=== PATIENT | female | born 1985 | race African-American/Black ===

== ENCOUNTER 2017-01-03 21:41 | Emergency (ER) | payer OTHER ==
[2017-01-03 22:00] VITALS: TEMP 98.3; BMI 33.2
--- NOTE | 2017-01-03 23:51 | PDOC ---
History of Present Illness - General History Source: Patient Exam Limitations: No Limitations - History of Present Illness Initial Comments: 01/04/17 00:06 The patient is a 31 year old female, with no significant past medical history who presents to the emergency department with lower abdominal pain since this morning. Patient reports the pain initially began as pressure like sensation upon urination. Patient also reported associated nausea, diarrhea and urinary retention. Patient states this morning, the pain still persists however is localized to the entire lower abdomen. Note, patient is also late for menstrual cycle. She denies chest pain, headache or dizziness. She denies fever, chills, vomit, diarrhea or constipation. She denies dysuria, frequency, urgency or hematuria. Patient denies sick contacts or recent travel. Allergies: amoxicillin, penicillins Past surgical history: Cholecystectomy Social history: Current everyday smoker <Chelsi Kemp - Last Filed: 01/04/17 00:06> - General History Source: Patient <AramMason devi - Last Filed: 01/04/17 01:23> - General Chief Complaint: Pain Stated Complaint: PAIN Time Seen by Provider: 01/03/17 23:45 Past History <Chelsi Kemp - Last Filed: 01/04/17 00:06> - Past Medical History Other medical history: Pt denies - Surgical History Cholecystectomy: Yes - Immunization History Immunization Up to Date: Yes - Suicide/Smoking/Psychosocial Hx Smoking Status: No Smoking History: Current every day smoker Have you smoked in the past 12 months: Yes Number of Cigarettes Smoked Daily: 10 Information on smoking cessation initiated: No 'Breaking Loose' booklet given: 05/31/14 Hx Alcohol Use: No Drug/Substance Use Hx: No Substance Use Type: None Hx Substance Use Treatment: No <Mason Linares - Last Filed: 01/04/17 01:23> - Past Medical History Allergies/Adverse Reactions: Allergies Allergy/AdvReac Type Severity Reaction Status Date / Time amoxicillin Allergy Intermediate Rash Verified 01/03/17 21:51 Penicillins Allergy Verified 01/03/17 21:51 Home Medications: Ambulatory Orders Medroxyprogesterone Acet [Depo-Provera] 150 mg IM ASDIR 10/03/14 Ibuprofen 800 mg PO TID #30 tablet 01/04/17 Levofloxacin [Levaquin -] 500 mg PO DAILY #4 tablet 01/04/17 Phenazopyridine HCl [Pyridium] 100 mg PO TID #6 tablet 01/04/17 Review of Systems - Review of Systems Able to Perform ROS?: Yes Comments:: 01/04/17 00:07 CONSTITUTIONAL: Absent: fever, chills, diaphoresis, generalized weakness, malaise, loss of appetite HEENT: Absent: rhinorrhea, nasal congestion, throat pain, throat swelling, difficulty swallowing, mouth swelling, ear pain, eye pain, visual Changes CARDIOVASCULAR: Absent: chest pain, syncope, palpitations, irregular heart rate, lightheadedness , peripheral edema RESPIRATORY: Absent: cough, shortness of breath, dyspnea with exertion, orthopnea, wheezing, stridor, hemoptysis GASTROINTESTINAL: +abdominal pain. +nausea. Absent: abdominal distension, vomiting, diarrhea, constipation, melena, hematochezia GENITOURINARY: Absent: dysuria, frequency, urgency, hesitancy, hematuria, flank pain, genital pain MUSCULOSKELETAL: Absent: myalgia, arthralgia, joint swelling SKIN: Absent: rash, itching, pallor HEMATOLOGIC/IMMUNOLOGIC: Absent: easy bleeding, easy bruising, lymphadenopathy, frequent infections ENDOCRINE: Absent: unexplained weight gain, unexplained weight loss, heat intolerance, cold intolerance NEUROLOGIC: Absent: headache, focal weakness or paresthesias, dizziness, unsteady gait, seizure, mental status changes, bladder or bowel incontinence PSYCHIATRIC: Absent: anxiety, depression, suicidal or homicidal ideation, hallucinations. <Chelsi Kemp - Last Filed: 01/04/17 00:06> *Physical Exam - Vital Signs Last Vital Signs Temp Pulse Resp BP Pulse Ox 98.3 F 95 H 20 152/74 99 01/03/17 21:51 01/03/17 21:51 01/03/17 21:51 01/03/17 21:51 01/03/17 21:51 - Physical Exam Comments: 01/04/17 00:07 GENERAL: Well developed, well nourished. Awake and alert. In no acute distress. HEENT: Normocephalic, atraumatic. PERRLA, EOMI. No conjunctival pallor. Sclerae are non -icteric. Moist mucous membranes. Oropharynx is clear. NECK: Supple. Full ROM. No JVD. Carotid pulses 2+ and symmetric, without bruits. No thyromegaly. No lymphadenopathy. CARDIOVASCULAR: Regular rate and rhythm. No murmurs, rubs, or gallops. Distal pulses are 2+ and symmetric. PULMONARY: No evidence of respiratory distress. Lungs clear to auscultation bilaterally. No wheezing, rales or rhonchi. ABDOMINAL: +diffuse abdominal tenderness. Soft. Non-tender. Non-distended. No rebound or guarding. No organomegaly. Normoactive bowel sounds. MUSCULOSKELETAL Normal range of motion at all joints. No bony deformities or tenderness. No CVA tenderness. EXTREMITIES: No cyanosis. No clubbing. No edema. No calf tenderness. SKIN: Warm and dry. Normal capillary refill. No rashes. No jaundice. NEUROLOGICAL: Alert, awake, appropriate. Cranial nerves 2-12 intact. No deficits to light touch and temperature in face, upper extremities and lower extremities. No motor deficits in the in face, upper extremities and lower extremities. Normoreflexic in the upper and lower extremities. Normal speech. Toes are downgoing bilaterally. Gait is normal without ataxia. PSYCHIATRIC: Cooperative. Good eye contact. Appropriate mood and affect. <Chelsi Kemp - Last Filed: 01/04/17 00:06> - Vital Signs Last Vital Signs Temp Pulse Resp BP Pulse Ox 98.3 F 95 H 20 152/74 99 01/03/17 21:51 01/03/17 21:51 01/03/17 21:51 01/03/17 21:51 01/03/17 21:51 <Mason Linares - Last Filed: 01/04/17 01:23> ED Treatment Course - LABORATORY CBC & Chemistry Diagram: 01/04/17 00:05 01/04/17 00:05 <Mason Linares - Last Filed: 01/04/17 01:23> Medical Decision Making - Medical Decision Making 01/04/17 01:23 Dr. Linares: The scribe's documentation has been prepared under my direction and personally reviewed by me in its entirery. I confirm that the note above accurately reflects all work, treatment, procedures, and medical decision making performed by me. <Mason Linares - Last Filed: 01/04/17 01:23> *DC/Admit/Observation/Transfer - Attestations Scribe Attestion: 01/04/17 00:07 Documentation prepared by Chelsi Kemp, acting as medical director of hospice for Mason Linares DO <Chelsi Kemp - Last Filed: 01/04/17 00:06> - Discharge Dispostion Admit: No <Mason Linares - Last Filed: 01/04/17 01:23> Diagnosis at time of Disposition: UTI (urinary tract infection) Qualifiers: Urinary tract infection type: site unspecified Hematuria presence: without hematuria Qualified Code(s): N39.0 - Urinary tract infection, site not specified ; N39.0 - Urinary tract infection, site not specified - Discharge Dispostion Disposition: HOME Condition at time of disposition: Stable - Patient Instructions Printed Discharge Instructions: DI for Urinary Tract Infection (UTI)
[2017-01-03] MEDS ORDERED: SODIUM CHLORIDE 1,000 ML IV STA (23:52)
[2017-01-04 00:23] LABS: BASOPHIL 0.6 % (0-2.0); EOSINOPHIL 0.4 % (0-4.5); MCH 28.5 pg (25.7-33.7); MEAN CELL VOLUME 86.4 fl (80-96); MEAN PLT VOLUME 9.6 fl (7.5-11.1); NEUTROPHILS 70.9 % (42.8-82.8); PLATELET COUNT 227 K/MM3 (134-434); WHITE BLOOD COUNT 16.8 K/mm3 (4.0-10.0)
[2017-01-04 00:49] LABS: ALBUMIN 3.8 g/dl (3.4-5.0); ALK PHOS 68 U/L (45-117); ANION GAP 9 (8-16); BILIRUBIN,TOTAL 0.4 mg/dL (0.2-1.0); CALCIUM 8.6 mg/dL (8.5-10.1); CO2 27 mmol/L (21-32); GLUCOSE,RANDOM 88 mg/dL (74-106); MAGNESIUM 2.2 mg/dL (1.8-2.4); SGOT/AST 14 U/L (15-37); SGPT/ALT 30 U/L (12-78); TOT PROT 7.6 g/dl (6.4-8.2)
[2017-01-04 00:57] LABS: URINE APPEARANCE SLCLOUDY; URINE BILIRUBIN NEGATIVE (NEGATIVE); URINE BLOOD 3+ (NEGATIVE); URINE COLOR STRAW; URINE GLUCOSE (UA) NEGATIVE (NEGATIVE); URINE KETONE NEGATIVE (NEGATIVE); URINE NITRITE NEGATIVE (NEGATIVE); URINE PROTEIN NEGATIVE (NEGATIVE); URINE UROBILINOGEN NEGATIVE mg/dL (0.2-1.0)
[2017-01-04 01:08] LABS: URINE BACTERIA MODERATE /hpf (NONE SEEN); URINE RBC 4 /hpf (0-3); URINE WBC 87 /hpf (3-5)
[2017-01-04] MEDS ORDERED: LEVOFLOXACIN 500 MG TABLET (FP) PO ONE (01:22)
[2017-01-04] MEDS ORDERED: PHENAZOPYRIDINE HCL 100 MG TABLET (FP) PO ONE (01:22)
[2017-01-04] MEDS ORDERED: IBUPROFEN 400 MG TABLET (FP) PO ONE ×2 (01:22→01:29)
[2017-01-04] MEDS ORDERED: PHENAZOPYRIDINE HCL 100 MG TABLET (FP) ONE (01:29)
[2017-01-04] MEDS ORDERED: LEVOFLOXACIN 500 MG TABLET (FP) ONE (01:29)
[2017-01-04 01:37] VITALS: BP 125/79; PULSE 80
[2017-01-04 09:17] LABS: URINE LEUK ESTERASE 3+ (NEGATIVE)
== END 2017-01-04 01:37 | disposition home or self-care (01) ==
LOC: JER 21:41
PROC: 3E0337Z Introduction of Electrolytic and Water Balance Substance into Peripheral Vein, Percutaneous Approach (ICD-10-PCS; principal; 2017-01-03)
DX: N39.0 Urinary tract infection, site not specified (principal); F17.210 Nicotine dependence, cigarettes, uncomplicated; Z88.0 Allergy status to penicillin
CPT/HCPCS: 36415; 80053; 81003; 81015; 83690; 83735; 84703; 85025; 87086; 87186; 99283-25

== ENCOUNTER 2018-10-22 19:55 | Emergency (ER) | payer BC, OTHER | END 2018-10-22 20:37 | disposition home or self-care (01) | LOC: FER 19:55 ==

== ENCOUNTER 2021-02-07 09:15 | Emergency (ER) | payer BC, OTHER ==
[2021-02-07 09:25] VITALS: TEMP 97.5; BMI 33.5
[2021-02-07] MEDS ORDERED: SODIUM CHLORIDE 1,000 ML IV ONE (10:14)
[2021-02-07] MEDS ORDERED: MECLIZINE HCL 25 MG TABLET (FP) PO ONE (10:22)
[2021-02-07] MEDS ORDERED: MECLIZINE HCL 25 MG TABLET (FP) ONE (10:28)
[2021-02-07 11:07] LABS: PH,URINE 5.5 (5.0-8.0); URINE APPEARANCE CLEAR; URINE BILIRUBIN NEGATIVE (NEGATIVE); URINE COLOR YELLOW; URINE GLUCOSE (UA) NEGATIVE (NEGATIVE); URINE KETONE NEGATIVE (NEGATIVE); URINE LEUK ESTERASE NEGATIVE (NEGATIVE); URINE NITRITE NEGATIVE (NEGATIVE); URINE PROTEIN NEGATIVE (NEGATIVE); URINE UROBILINOGEN 0.2 mg/dL (0.2-1.0)
[2021-02-07 11:09] LABS: HCG,QUALITATIVE URINE Negative
[2021-02-07 11:20] LABS: INR 0.96 (0.83-1.09); PROTHROMBIN TIME (PATIENT) 11.2 SEC (9.7-13.0)
[2021-02-07 11:23] LABS: ACTIVATED PTT 29.7 SECONDS (25.2-36.5)
[2021-02-07 11:36] LABS: CHLORIDE 107 mmol/L (98-107); SODIUM 137 mmol/L (136-145)
[2021-02-07 11:39] LABS: ALBUMIN 3.7 g/dl (3.4-5.0); ANION GAP 6 MMOL/L (8-16); BLOOD UREA NITROGEN 10.8 mg/dL (7-18); CO2 24 mmol/L (21-32); GLUCOSE,RANDOM 95 mg/dL (74-106)
[2021-02-07 11:42] LABS: CREATININE 0.5 mg/dL (0.55-1.3); SGOT/AST 15 U/L (15-37); SGPT/ALT 22 U/L (13-61)
[2021-02-07 11:43] LABS: BILIRUBIN,TOTAL 0.3 mg/dL (0.2-1)
[2021-02-07 11:44] LABS: TOT PROT 7.4 g/dl (6.4-8.2)
[2021-02-07 11:45] LABS: ALK PHOS 63 U/L (45-117)
[2021-02-07 11:46] LABS: BASO % 0.3 % (0-2.0); EOS % 0.7 % (0-4.5); HEMATOCRIT 38.7 % (32.4-45.2); HEMOGLOBIN 12.9 GM/dL (10.7-15.3); LYMPH % 39.9 % (8-40); MCH 29.3 pg (25.7-33.7); MCHC 33.4 g/dl (32.0-36.0); MEAN CELL VOLUME 87.8 fl (80-96); MEAN PLT VOLUME 9.2 fl (7.5-11.1); MONO % 6.8 % (3.8-10.2); NEUT % 52.3 % (42.8-82.8); PLATELET COUNT 229 10^3/uL (134-434); RBC 4.41 M/mm3 (3.60-5.2); RDW 13.7 % (11.6-15.6); WHITE BLOOD COUNT 8.9 K/mm3 (4.0-10.0)
[2021-02-07 14:49] VITALS: BP 105/50; PULSE 65
== END 2021-02-07 15:13 | disposition home or self-care (01) ==
LOC: JER 09:15
PROC: 3E0337Z Introduction of Electrolytic and Water Balance Substance into Peripheral Vein, Percutaneous Approach (ICD-10-PCS; principal; 2021-02-07)
DX: H81.11 Benign paroxysmal vertigo, right ear (principal)
CPT/HCPCS: 36415; 70450-TC; 71046-TC-FY; 71275-TC; 80053; 81003; 82550; 84484; 84703; 85025; 85379; 85610; 85730; 87086; 87186; 87804; 93005; 93010; 99285-25; C9803; Q9967; U0003; U0005

== ENCOUNTER 2022-03-15 13:05 | Emergency (ER) | payer BC, OTHER ==
[2022-03-15 13:14] VITALS: BP 101/67; PULSE 82; RESP 18; TEMP 98.2; BMI 31.2
[2022-03-15] MEDS ORDERED: IBUPROFEN 600 MG TABLET (FP) PO ONE ×3 (13:15→13:50)
[2022-03-15] MEDS ORDERED: ACETAMINOPHEN 325 MG TABLET (FP) PO ONE (13:42)
[2022-03-15] MEDS ORDERED: ACETAMINOPHEN 325 MG TABLET (FP) ONE (13:50)
== END 2022-03-15 14:16 | disposition home or self-care (01) ==
LOC: FER 13:05
DX: R51.9 Headache, unspecified (principal); R11.0 Nausea; R05.1 Acute cough; R09.81 Nasal congestion
CPT/HCPCS: 0241U-QW; 99283-25

== ENCOUNTER 2023-04-21 01:25 | Inpatient (IN) | payer OTHER, BC ==
[2023-04-21] MEDS ORDERED: ONDANSETRON 4 MG/2 ML VIAL ONE (01:56)
[2023-04-21] MEDS ORDERED: ACETAMINOPHEN INJECTION 100 ML IVPB ONE (01:56)
[2023-04-21] MEDS: ACETAMINOPHEN 1000 MG/100 ML BAG IVPB ONE (02:03)
[2023-04-21] MEDS: SODIUM CHLORIDE 1,000 ML IV STA (02:03)
[2023-04-21] MEDS: ONDANSETRON 4 MG/2 ML VIAL IVPUSH ONE (02:04)
[2023-04-21 03:40] LABS: BASO % 0.2 % (0-2.0); EOS % 0.3 % (0-4.5); HEMATOCRIT 39.8 % (32.4-45.2); HEMOGLOBIN 13.3 GM/dL (10.7-15.3); LYMPH % 15.8 % (8-40); MCH 29.4 pg (25.7-33.7); MCHC 33.4 g/dl (32.0-36.0); MEAN PLT VOLUME 9.3 fl (7.5-11.1); MONO % 5.3 % (3.8-10.2); NEUT % 78.4 % (42.8-82.8); PLATELET COUNT 199 10^3/uL (134-434); RBC 4.52 M/mm3 (3.60-5.2); RDW 13.4 % (11.6-15.6); WHITE BLOOD COUNT 17.8 K/mm3 (4.0-10.0)
[2023-04-21 03:41] LABS: EPI CELLS >36 /uL (0-25.1); HYALINE CASTS 5 /uL (0-3.1); URINE APPEARANCE CLOUDY; URINE BACTERIA 410 /uL (0-1359); URINE BILIRUBIN 2+ (NEGATIVE); URINE COLOR DK YELLOW; URINE GLUCOSE (UA) NEGATIVE (NEGATIVE); URINE KETONE 2+ (NEGATIVE); URINE LEUK ESTERASE NEGATIVE (NEGATIVE); URINE NITRITE NEGATIVE (NEGATIVE); URINE PROTEIN 1+ (NEGATIVE); URINE WBC 52 /uL (0-25.8)
[2023-04-21 04:35] LABS: POTASSIUM 3.4 mmol/L (3.5-5.1)
[2023-04-21 04:37] LABS: ALBUMIN 3.8 g/dl (3.4-5.0); BLOOD UREA NITROGEN 9.4 mg/dL (7-18); CALCIUM 9.1 mg/dL (8.5-10.1)
[2023-04-21 04:40] LABS: CREATININE 0.6 mg/dL (0.55-1.3)
[2023-04-21 04:42] LABS: BILIRUBIN,TOTAL 0.5 mg/dL (0.2-1); TOT PROT 7.8 g/dl (6.4-8.2)
[2023-04-21] MEDS ORDERED: KETOROLAC TROMETHAMINE 30 MG/1 ML VIAL ONE (06:40)
[2023-04-21] MEDS: KETOROLAC TROMETHAMINE 30 MG/1 ML VIAL IVPUSH ONE (06:42)
[2023-04-21] MEDS ORDERED: CLINDAMYCIN 600MG PREMIX IVPB 600 MG/50 ML BAG IVPB ONE (07:01)
[2023-04-21] MEDS: CLINDAMYCIN 600MG PREMIX IVPB 600 MG/50 ML BAG IVPB ONE (07:03)
[2023-04-21 08:20] LABS: URINE RBC 84 /uL (0-23.9)
[2023-04-21] MEDS ORDERED: morphine SULFATE 4 MG/ML VIAL ONE (10:07)
[2023-04-21] MEDS: morphine CARPU-JECT 4 MG/1 ML DISP.SYRIN IVPUSH ONE (10:13)
[2023-04-21] MEDS ORDERED: DOXYCYCLINE HYCLATE 100 MG VIAL ONE (10:30)
[2023-04-21] MEDS ORDERED: cefTRIAXone SODIUM 1 GM VIAL ONE (10:30)
[2023-04-21] MEDS: CEFTRIAXONE 1,000 MG in DEXTROSE 5%-WATER - 50 ML IVPB ONE (10:30)
[2023-04-21] MEDS: DOXYCYCLINE INJECTION 100 MG in DEXTROSE 5%-WATER 100 ML IVPB ONE (11:17)
[2023-04-21] MEDS ORDERED: morphine CARPU-JECT 2 MG/1 ML DISP.SYRIN IVPUSH PRN (12:03)
[2023-04-21 12:38] VITALS: BMI 29.9
[2023-04-21] MEDS: ACETAMINOPHEN 1000 MG/100 ML BAG IVPB PRN (16:50)
[2023-04-21] MEDS: DOXYCYCLINE INJECTION 100 MG in DEXTROSE 5%-WATER 100 ML IVPB SCH (22:32)
[2023-04-22] MEDS: CEFTRIAXONE 1 GM in DEXTROSE 5%-WATER - 50 ML IVPB SCH (09:45)
[2023-04-22 10:02] LABS: ALBUMIN 3.6 g/dl (3.4-5.0); BILIRUBIN,TOTAL 0.4 mg/dl (0.2-1); CALCIUM 8.5 mg/dl (8.5-10.1); CREATININE 0.5 mg/dl (0.6-1.3); POTASSIUM 3.4 mmol/L (3.5-5.1)
[2023-04-22] MEDS: POTASSIUM CHLORIDE TABS 20 MEQ TABLET.ER (FP) PO ONE (10:51)
[2023-04-22 11:14] LABS: BASO % 0.2 % (0-2.0); EOS % 0.3 % (0-4.5); HEMATOCRIT 32.9 % (32.4-45.2); HEMOGLOBIN 10.9 GM/dL (10.7-15.3); LYMPH % 16.8 % (8-40); MCH 28.9 pg (25.7-33.7); MEAN CELL VOLUME 87.5 fl (80-96); MEAN PLT VOLUME 9.6 fl (7.5-11.1); MONO % 7.5 % (3.8-10.2); NEUT % 75.2 % (42.8-82.8); PLATELET COUNT 168 10^3/uL (134-434); RBC 3.76 M/mm3 (3.60-5.2); RDW 13.3 % (11.6-15.6); WHITE BLOOD COUNT 12.6 K/mm3 (4.0-10.0)
[2023-04-23 08:49] LABS: ALBUMIN 3.5 g/dl (3.4-5.0); BILIRUBIN,TOTAL 0.2 mg/dl (0.2-1); CALCIUM 8.7 mg/dl (8.5-10.1); CREATININE 0.5 mg/dl (0.6-1.3); POTASSIUM 3.8 mmol/L (3.5-5.1); TOT PROT 5.9 g/dl (6.4-8.2)
[2023-04-23 10:20] LABS: BASO % 0.2 % (0-2.0); EOS % 1.4 % (0-4.5); HEMATOCRIT 32.9 % (32.4-45.2); HEMOGLOBIN 10.9 GM/dL (10.7-15.3); LYMPH % 25.9 % (8-40); MCH 28.9 pg (25.7-33.7); MEAN CELL VOLUME 87.5 fl (80-96); MONO % 9.6 % (3.8-10.2); NEUT % 62.9 % (42.8-82.8); PLATELET COUNT 175 10^3/uL (134-434); RBC 3.76 M/mm3 (3.60-5.2); RDW 13.3 % (11.6-15.6)
[2023-04-23 15:40] VITALS: BP 100/71; PULSE 69; RESP 19; TEMP 98.3
== END 2023-04-23 18:35 | disposition home or self-care (01) | DRG 759 ==
LOC: FER 01:25 → FM/S 09:56
DX: N73.0 Acute parametritis and pelvic cellulitis (principal); N73.9 Female pelvic inflammatory disease, unspecified; N72 Inflammatory disease of cervix uteri; R50.9 Fever, unspecified; D72.829 Elevated white blood cell count, unspecified; Z88.0 Allergy status to penicillin
CPT/HCPCS: 36415; 71045-TC-FY; 74177-TC; 80053; 81003; 81025; 85025; 87086; 87491; 87591; 87661; 93005; 99285-25; J0131; Q9967

== ENCOUNTER 2023-09-18 10:25 | Emergency (ER) | payer OTHER, BC ==
[2023-09-18 10:43] VITALS: BP 100/60; BMI 31.2
== END 2023-09-18 10:40 | disposition left against medical advice (07) ==
LOC: FER 10:25
DX: M54.9 Dorsalgia, unspecified (principal); Z53.21 Procedure and treatment not carried out due to patient leaving prior to being seen by health care provider
CPT/HCPCS: 99281-25

== ENCOUNTER 2023-09-18 11:05 | Emergency (ER) | payer OTHER, BC ==
[2023-09-18 11:31] VITALS: BP 119/78; PULSE 93; RESP 18; TEMP 98.4; BMI 31.2
[2023-09-18] MEDS ORDERED: KETOROLAC TROMETHAMINE 30 MG/1 ML VIAL ONE (12:42)
[2023-09-18] MEDS ORDERED: diazePAM 2 MG TABLET ONE (12:42)
[2023-09-18] MEDS: diazePAM 2 MG TABLET PO ONE (12:50)
[2023-09-18] MEDS: KETOROLAC TROMETHAMINE 30 MG/1 ML VIAL IM ONE (12:50)
== END 2023-09-18 14:40 | disposition home or self-care (01) ==
LOC: JERFT 11:05
PROC: 3E0233Z Introduction of Anti-inflammatory into Muscle, Percutaneous Approach (ICD-10-PCS; principal; 2023-09-18)
DX: M54.50 Low back pain, unspecified (principal); G89.29 Other chronic pain
CPT/HCPCS: 99284-25